=== PATIENT | male | born 1940 | race Caucasian/White ===

== ENCOUNTER 2022-09-13 11:19 | Emergency (ER) | payer OTHER ==
[~2022-09-13] VITALS: Ht 175.3 cm; Wt 108.9 kg
[~2022-09-13 11:19] MED LIST: APIX5TAB PO; ASPI-1197 PO; CETI10TA87 PO; DOXY100T2 PO; EMPA25TA PO; FERR-82 PO; FLUT1BLS9 IH; LEVE500T19 PO; LOSA25TA41 PO; MELA10TA2 PO; MESA1.2T PO; METO50TA9 PO; NATE60TA14 PO; PRED20TA3 PO; SERT-439 PO; SIMV-46 PO
[2022-09-13 11:20] VITALS: BP 0/0
== END 2022-09-13 13:54 ==
LOC: EDH 11:19
DX: I46.9 Cardiac arrest, cause unspecified (principal); I11.0 Hypertensive heart disease with heart failure; I50.9 Heart failure, unspecified; E11.9 Type 2 diabetes mellitus without complications; E78.00 Pure hypercholesterolemia, unspecified; F32.A Depression, unspecified; I48.91 Unspecified atrial fibrillation; J45.909 Unspecified asthma, uncomplicated; Z79.01 Long term (current) use of anticoagulants; Z79.51 Long term (current) use of inhaled steroids; Z79.82 Long term (current) use of aspirin; Z79.84 Long term (current) use of oral hypoglycemic drugs; Z79.899 Other long term (current) drug therapy; Z88.0 Allergy status to penicillin; Z88.8 Allergy status to other drugs, medicaments and biological substances